=== PATIENT | female | born 1995 | race American Indian/Alaskan Native ===

== ENCOUNTER 2019-10-16 09:43 | Emergency (ER) | payer SELFPAY ==
[2019-10-16 10:03] VITALS: BP 121/62
--- NOTE | 2019-10-16 10:37 | Emergency Department Report ---
ED Female HPI - General Chief complaint: Urogenital-Female Stated complaint: UTI Time Seen by Provider: 10/16/19 10:27 Source: patient Mode of arrival: Ambulatory Limitations: No Limitations - History of Present Illness Initial comments: This is a 24-year-old -Prydeinig female day presents to the emergency room with urinary frequency and dysuria for 1-1/2 weeks. Patient denies vaginal discharge, fever, chills, pelvic pain, or back pain. MD Complaint: dysuria Onset/Timin -: week(s) Severity: mild Severity scale (0 -10): 3 Quality: burning Consistency: intermittent Improves with: none Worsens with: urination Are you Now?: No Last Menstrual Period: 09/18/19 EDC: 06/24/20 Associated Symptoms: denies other symptoms - Related Data Sexually active: Yes : 5 Para: 3 A: 2 Previous Rx's Medication Instructions Recorded Last Taken Type Phenazopyridine [Pyridium] 200 mg PO TID #6 tab 10/16/19 Unknown Rx Sulfamethoxazole/Trimethoprim 1 each PO BID #6 tablet 10/16/19 Unknown Rx [Bactrim DS TAB] Allergies Allergy/AdvReac Type Severity Reaction Status Date / Time Penicillins Allergy Hives Verified 10/16/19 09:59 ED Review of Systems ROS: Stated complaint: UTI Other details as noted in HPI Constitutional: denies: chills, fever Respiratory: denies: cough, shortness of breath, wheezing Cardiovascular: denies: chest pain, palpitations Gastrointestinal: denies: abdominal pain, nausea, diarrhea Genitourinary: dysuria, frequency. denies: urgency, discharge Musculoskeletal: denies: back pain, joint swelling, arthralgia Skin: denies: rash, lesions Neurological: denies: headache, weakness, paresthesias Psychiatric: denies: anxiety, depression ED Past Medical Hx - Past Medical History Previous Medical History?: No - Surgical History Past Surgical History?: No - Medications Home Medications: Home Medications Medication Instructions Recorded Confirmed Last Taken Type Phenazopyridine [Pyridium] 200 mg PO TID #6 tab 10/16/19 Unknown Rx Sulfamethoxazole/Trimethoprim 1 each PO BID #6 tablet 10/16/19 Unknown Rx [Bactrim DS TAB] ED Physical Exam - General Limitations: No Limitations General appearance: alert, in no apparent distress - Respiratory Respiratory exam: Present: normal lung sounds bilaterally. Absent: respiratory distress - Cardiovascular Cardiovascular Exam: Present: regular rate, normal rhythm. Absent: systolic murmur, diastolic murmur, rubs, gallop - GI/Abdominal GI/Abdominal exam: Present: soft, normal bowel sounds. Absent: distended, tenderness, guarding, rebound, rigid, organomegaly - Extremities Exam Extremities exam: Present: normal inspection - Back Exam Back exam: Absent: CVA tenderness (R), CVA tenderness (L) - Neurological Exam Neurological exam: Present: alert, oriented X3, normal gait - Psychiatric Psychiatric exam: Present: normal affect, normal mood - Skin Skin exam: Present: warm, dry, intact, normal color. Absent: rash ED Course Vital Signs 10/16/19 10:03 Temperature 98.6 F Pulse Rate 70 Respiratory 16 Rate Blood Pressure 121/62 [Right] O2 Sat by Pulse 100 Oximetry ED Medical Decision Making - Lab Data Lab Results 10/16/19 Range/Units 10:24 Urine Color Yellow (Yellow) Urine Turbidity Hazy (Clear) Urine pH 5.0 (5.0-7.0) Ur Specific [place] 1.030 (1.003-1.030) Urine Protein 30 mg/dl (Negative) mg/dL Urine Glucose (UA) Negative (Negative) mg/dL Urine Ketones Negative (Negative) mg/dL Urine Blood Negative (Negative) Urine Nitrite Negative (Negative) Ur Reducing Substances Not Reportable Urine Bilirubin Negative (Negative) Urine Ictotest Not Reportable Urine Urobilinogen < 0.2 (<2.0) mg/dL Ur Leukocyte Esterase Large (Negative) Urine WBC (Auto) 45.0 H (0.0-6.0) /HPF Urine RBC (Auto) 6.0 (0.0-6.0) /HPF U Epithel Cells (Auto) 8.0 (0-13.0) /HPF Urine Bacteria (Auto) 1+ (Negative) /HPF Urine Mucus 3+ /HPF Urine HCG, Qual Negative (Negative) - Medical Decision Making 24-year-old female complaining of dysuria and urinary frequency for 1 week. Patient was examined by me. Patient is nontoxic appearing and stable. Vitals are normal. Obtained urinalysis and urine test. Urinalysis positive for acute cystitis. Negative urine test. Start Bactrim DS and Pyridium for acute cystitis. Given strict return precautions. Patient discharged with prompt follow-up with primary care physician. Critical care attestation.: If time is entered above; I have spent that time in minutes in the direct care of this critically ill patient, excluding procedure time. ED Disposition Clinical Impression: Dysuria, Urinary frequency Acute cystitis Qualifiers: Hematuria presence: without hematuria Qualified Code(s): N30.00 - Acute cystitis without hematuria Disposition: TO HOME OR SELFCARE Is pt being admited?: No Condition: Stable Instructions: Urinary Tract Infection in Women (ED), Dysuria (ED) Additional Instructions: Increase fluid intake to 1 L to 2 L daily. Complete full course of antibiotics as prescribed. Symptoms should resolve in 2 to 3 days. Follow-up with a primary care doctor. Prescriptions: Sulfamethoxazole/Trimethoprim [Bactrim DS TAB] 1 each PO BID #6 tablet Phenazopyridine [Pyridium] 200 mg PO TID #6 tab Referrals: [facility] [Outside] - 3-5 Days [facility] [Outside] - 3-5 Days [facility] [Outside] - 3-5 Days Forms: Work/School Release Form(ED) Time of Disposition: 11:23
[2019-10-16 10:44] LABS: HCG Qualitative,Urine Negative (Negative)
[2019-10-16 11:03] LABS: Color,Urine Yellow (Yellow)
[2019-10-16 11:04] LABS: Bilirubin,Urine Negative (Negative); Blood,Urine Negative (Negative); Urobilinogen,Urine < 0.2 mg/dL (<2.0)
[2019-10-16 11:13] LABS: Bacteria,Urine 1+ /HPF (Negative); Mucus,Urine 3+ /HPF
== END 2019-10-16 11:30 | disposition home or self-care (01) ==
LOC: ED 09:43
DX: N30.00 Acute cystitis without hematuria (principal)
CPT/HCPCS: 81001; 81025; 87076; 87086; 87186; 99282